=== PATIENT | male | born 1960 | race Caucasian/White ===

== ENCOUNTER 2017-07-16 10:59 | Emergency (ER) | payer SELFPAY ==
[2017-07-16] MEDS: diazePAM 5 MG TABLET PO (12:19)
[2017-07-16] MEDS: NAPROXEN 500 MG TABLET PO (12:19)
[2017-07-16] MEDS: HYDROcodone/APAP 5/325MG 1 TAB TABLET PO (12:20)
[2017-07-16] MEDS: LIDOCAINE WITH 8.4% SOD BICARB 3 ML DISP.SYRIN. INJ (12:20)
== END 2017-07-16 14:04 | disposition home or self-care (01) ==
LOC: ER 10:59
DX: L02.416 Cutaneous abscess of left lower limb (principal); L03.116 Cellulitis of left lower limb; Z96.659 Presence of unspecified artificial knee joint
CPT/HCPCS: 10060; 99284